=== PATIENT | female | born 1985 | race Caucasian/White ===

== ENCOUNTER 2024-02-09 16:05 | Emergency (ER) | payer OTHER ==
[~2024-02-09] VITALS: Ht 157.5 cm; Wt 109.8 kg
[2024-02-09] MEDS ORDERED: ACET-897 PO (16:18)
[2024-02-09] MEDS ORDERED: KETOROLAC 30 MG/ML 1ML VIAL IV ONE (18:25)
[2024-02-09] MEDS: AMOXICILLIN 500 MG CAP PO ONE (18:35)
[2024-02-09] MEDS: KETOROLAC 60MG 2ML VIAL IM ONE (18:36)
[2024-02-09] MEDS ORDERED: IBUP-1022 PO (18:42)
[2024-02-09] MEDS ORDERED: AMOX500C PO (18:42)
[2024-02-09 18:51] VITALS: BP 165/98; TEMP 97.4; O2SAT 97
== END 2024-02-09 18:59 | disposition home or self-care (01) ==
LOC: M ED 16:05
DX: K04.7 Periapical abscess without sinus (principal); G43.909 Migraine, unspecified, not intractable, without status migrainosus; F17.200 Nicotine dependence, unspecified, uncomplicated; Z79.2 Long term (current) use of antibiotics; Z79.1 Long term (current) use of non-steroidal anti-inflammatories (NSAID)
CPT/HCPCS: 96372; 99283; J1885